=== PATIENT | female | born 1965 | race Caucasian/White ===

== ENCOUNTER 2019-01-21 05:37 | Day surgery (SDC) | payer OTHER ==
[2019-01-21] MEDS ORDERED: FENTANYL PF 100MCG/2ML VIAL IV ONE (05:38)
[2019-01-21] MEDS ORDERED: LIDOCAINE 2% MDV (20MG/ML) 20ML VIAL IV ONE (05:38)
[2019-01-21] MEDS ORDERED: PROPOFOL 10 MG/ML VIAL IV ONE (05:38)
[2019-01-21] MEDS ORDERED: MIDAZOLAM HCL 2MG/2ML VIAL IV ONE (05:38)
[2019-01-21] MEDS ORDERED: RINGERS SOLUTION,LACTATED 1,000 ML IV ONE (06:25)
[2019-01-21] MEDS ORDERED: DEXAMETHASONE PRESERVATIVE FREE 10MG/ML VIAL IM ONE (07:29)
[2019-01-21] MEDS ORDERED: BUPIVACAINE 0.5% W/EPI MPF 30 ML VIAL SQ ONE (07:29)
[2019-01-21] MEDS ORDERED: LIDOCAINE 1% W/EPI 1:200,000 MPF 30ML SQ ONE (07:29)
[2019-01-21] MEDS ORDERED: BUPIVACAINE 0.5% (5MG/ML) PF 30ML VIAL SQ ONE (07:30)
--- NOTE | 2019-01-23 08:01 | Operative Note ---
DATE OF SURGERY: 01/21/2019 PREOPERATIVE DIAGNOSIS: Lumbar spondylosis without myelopathy, ICD10 code M47.816. OPERATION: Fluoroscopic-guided infiltration of block bilateral lumbar facets 3- 4, 4-5, 5-1. INDICATION: This patient presents with primary back pain. Examination showed tenderness of the lumbar spine. Range of motion does cause pain to the back with extension. Diagnostic studies show 4-5, 5-1 disc and multilevel facet spondylosis. PROCEDURE: Intravenous line, vital sign monitoring, IV sedation, prepped and draped in sterile technique. Under imaging, facets levels lumbar spine in the area of pain were identified and marked, 3-4, 4-5, 5-1. Each one of these points in the skin infiltrated. A 22-gauge 3-1/2 inch needle into the facet with 1 mL of 0.5% Marcaine and dexamethasone injected. This was repeated bilaterally. Areas cleaned. Topical antibiotic and sterile dressing applied. Will monitor and evaluate. MTDD
== END 2019-01-21 08:05 | disposition home or self-care (01) ==
LOC: SUR 05:37
PROVIDERS: ATTEND Pain Medicine Interventional Pain Medicine
DX: M47.816 Spondylosis without myelopathy or radiculopathy, lumbar region (principal); E03.9 Hypothyroidism, unspecified; J45.909 Unspecified asthma, uncomplicated
CPT/HCPCS: 64493; 64494; 64495; 01992; 81025; J1100; J3010; J7120

== ENCOUNTER → 2019-02-11 | Day surgery (SDC) | payer OTHER ==
[~2019-02-11] MED LIST: BUPIVACAINE 0.25% PF (2.5MG/ML) 10ML VIAL IM ONE; BUPIVACAINE 0.5% W/EPI MPF 30 ML VIAL SQ ONE; DEXAMETHASONE PRESERVATIVE FREE 10MG/ML VIAL IM ONE; FENTANYL PF 100MCG/2ML VIAL IV ONE; LIDOCAINE 1% W/EPI 1:200,000 MPF 30ML SQ ONE; LIDOCAINE 2% MDV (20MG/ML) 20ML VIAL IV ONE; MIDAZOLAM HCL 2MG/2ML VIAL IV ONE; PROPOFOL 10 MG/ML VIAL IV ONE; RINGERS SOLUTION,LACTATED 1,000 ML IV ONE
--- NOTE | 2019-02-11 09:42 | Operative Note - [place] ---
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 OPERATION: FLUOROSCOPICALLY GUIDED BILATERAL LUMBAR EPIDURAL INJECTION L4-L5. SURGEON: Jose Spaulding D.O. ANESTHESIA: Local sedation. ANESTHESIA PROVIDER: Angel Anne CRNA INDICATION: This patient presents with pain which is bilateral lower extremity. Evaluation shows pain and tenderness across the hips and front surface of both legs. The pattern is L4. Diagnostics do show a scoliosis convexity to the left, diffuse disk abnormalities including L4-L5 and L5-S1. The pattern of pain is L4-L5. PROCEDURE: Intravenous line, vital sign monitoring, IV sedation, prepped and draped, sterile technique. Under imaging the epidural interspace at L4-L5 was identified and marked bilaterally. The skin was infiltrated. Two separate 18- gauge Tuohy needles with loss resistance, one left and one at midline, atraumatic. No blood. No CSF. Contrast epidurogram at each showing epidural flow characteristics appropriate for this space. 5 ml of .125% Marcaine and dexamethasone injected, first left and then right. Both needles were removed, back cleaned, topical antibiotic, and sterile dressings were applied. Will monitor and evaluate. JOB NUMBER: [id number] MTDD
== END | disposition home or self-care (01) ==
LOC: SUR 05:55
PROVIDERS: ATTEND Pain Medicine Interventional Pain Medicine
DX: M54.16 Radiculopathy, lumbar region (principal); M54.17 Radiculopathy, lumbosacral region; M41.25 Other idiopathic scoliosis, thoracolumbar region; J44.9 Chronic obstructive pulmonary disease, unspecified; K21.9 Gastro-esophageal reflux disease without esophagitis; E03.9 Hypothyroidism, unspecified
CPT/HCPCS: 81025; J7120